=== PATIENT | male | born 1990 | race Two or more races ===

== ENCOUNTER 2024-12-06 14:08 | Emergency (ER) | payer MEDICAID, SELFPAY ==
[2024-12-06 14:19] VITALS: BP 139/90; PULSE 89; RESP 18; TEMP 36.6; O2SAT 99; BMI 26.2
--- NOTE | 2024-12-06 14:23 | XR_ITS ---
Examination: CT abdomen and pelvis without contrast. Coronal 3-D reconstructions. Sagittal 2-D reconstructions. Date and time of exam:December 06, 2024 at 1518 hours INDICATIONS: Right-sided flank pain radiating to the back today, history kidney stones on CT study May 04, 2020 CTDI: vol (mGy): 7.48 DLP: (mGycm): 441 Technique: Axial images of the abdomen have been obtained, 3 mm slice thickness Intravenous contrast material has not been administered. Low dose protocols were performed. One or more of the following dose reduction techniques were used; automated exposure control, adjustment of the mA and/or KV according to patient size, use of iterative reconstruction technique. Findings: Chronic lesions No gallstones No pancreatic or adrenal mass 2 mm right renal calculus, no hydronephrosis or ureteral calculi Normal appendix No bladder mass or bladder calculi, no prostatomegaly Intact osseous structures IMPRESSION: 2 mm nonobstructing right renal calculus Mild bilateral renal parenchymal scar formation. No hydronephrosis or ureteral calculi No bladder mass or bladder calculi
--- NOTE | 2024-12-06 14:23 | XR_ITS ---
Examination: Lumbar spine 3 views TECHNIQUE: AP lateral coned lateral and lower lumbar spine 3 views Date and time: December 06, 2024, 12:38 PM INDICATIONS: Low back pain today. FINDINGS: Satisfactory alignment lumbar vertebral bodies. No lumbar fracture. No spondylolisthesis. Minimal disc narrowing posteriorly L5-S1 IMPRESSION: Minimal disc narrowing L5-S1
--- NOTE | 2024-12-06 15:00 | EDNOTE_ITS ---
ED Back Injury Pain RME/HPI General Chief Complaint: Back Pain/Injury Stated Complaint: INTERMITTENT LOWER BACK/FLANK PAIN Time Seen by Provider: 12/06/24 14:11 Arrival date/time: 12/06/24 14:08 34-year-old male with no known medical history presents to the emergency room with a chief complaint of left-sided flank pain and bilateral lower abdominal pain x 3 days Mode of arrival: ambulatory Limitations: no limitations Related Data Home Medications ?Medication ?Instructions ?Recorded ?Confirmed ibuprofen 800 mg tablet 800 mg PO Q4-6HRPRN ##0 10/13 05/27 Previous Rx's ?Medication ?Instructions ?Recorded lorazepam 1 mg tablet 1 mg PO TID #6 tabs 05/02/14 hydrocodone 5 mg-acetaminophen 325 1 tab PO BID PRN pa in #10 tabs 05/04/20 mg tablet ([place]) tamsulosin 0.4 mg capsule (Flomax) 0.4 mg PO QDAY #7 c aps 05/04/20 hydrocodone 5 mg-acetaminophen 325 1 tab PO BID PRN pa in #10 tabs 03/17/23 mg tablet ibuprofen 800 mg tablet 800 mg PO TID PRN pain #30 t abs 03/17/23 hydrocodone 5 mg-acetaminophen 325 1 tab PO BID PRN pa in #10 tabs 12/06/24 mg tablet tamsulosin 0.4 mg capsule (Flomax) 0.4 mg PO QDAY #30 caps 12/06/24 Allergies Allergy/AdvReac Type Severity Reaction Status Date / Time No Known Allergies Allergy Verified 12/06/24 14:10 Review of Systems Review of Systems Systems Reviewed: All systems reviewed, normal except as documented Constitutional Constitutional: Reports system reviewed and no additional complaints, except as documented, Denies fatigue, Denies fever(s), Denies headache(s) and Denies weakness Eyes Eyes: Reports system reviewed and no additional complaints, except as documented, Denies blurry vision and Denies change in vision ENT Ears, Nose, Mouth, and Throat: Reports system reviewed and no additional complaints, except as documented, Denies otalgia, Denies headache(s), Denies nasal congestion, Denies throat swelling and Denies vertigo Cardiovascular Cardiovascular: Reports system reviewed and no additional complaints, except as documented, Denies chest pain, Denies dyspnea and Denies dyspnea on exertion Respiratory Respiratory: Reports system reviewed and no additional complaints, except as documented, Denies chest congestion, Denies cough, Denies dyspnea, Denies dyspnea on exertion and Denies wheezing Gastrointestinal Gastrointestinal: Reports system reviewed and no additional complaints, except as documented, Denies abdominal pain, Denies cramping, Denies nausea and Denies vomiting Genitourinary Genitourinary: Reports system reviewed and no additional complaints, except as documented, Denies dysuria and Denies hematuria Musculoskeletal Musculoskeletal: Reports system reviewed and no additional complaints, except as documented and Denies back pain Integumentary/Breasts Skin/Breast: Reports system reviewed and no additional complaints, except as documented and Denies wounds Neurologic Neurologic: Reports system reviewed and no additional complaints, except as doc umented, Denies confusion, Denies headache(s), Denies lack of coordination, Denies vertigo and Denies weakness Psychiatric Psychiatric: Reports system reviewed and no additional complaints, except as documented, Denies anxiety, Denies confusion, Denies depression, Denies paranoia, Denies suicidal ideation and Denies tactile hallucinations Endocrine Endocrine: Reports system reviewed and no additional complaints, except as documented and Denies fatigue Hematologic/Lymphatic Hematologic/Lymphatic: Reports system reviewed and no additional complaints, except as documented and Denies lymphadenopathy Allergic/Immunologic Allergic/Immunologic: Reports system reviewed and no additional complaints, except as documented, Denies throat swelling, Denies urticaria and Denies wheezing ED Exam General Limitations: Present no limitations Course Quality Measures none Orders Category Date Time Status CT abdomen pelvis wo con Stat Exams 12/06/24 14:23 Completed XR lumbar spine 2-3V Stat Exams 12/06/24 14:23 Completed CBC Stat Lab 12/06/24 14:50 Completed CMP [Comprehensive Metabolic Panel] Stat Lab 12/06/24 14:50 Completed Lipase Stat Lab 12/06/24 14:50 Completed UA [Urinalysis] Stat Lab 12/06/24 14:45 Completed Urine Culture Stat Lab 12/06/24 14:45 Received Ketorolac Inj [Toradol Inj] Med 12/06/24 14:23 Discontinued 30 mg IM X1 ONE Vital Signs Vital signs: Vital Signs Temperature 98 F 12/06/24 14:19 Pulse Rate 89 12/06/24 14:19 Respiratory Rate 18 12/06/24 14:19 Blood Pressure 139/90 H 12/06/24 14:19 Pulse Oximetry (%) 99 12/06/24 14:19 Oxygen Delivery Method Room Air 12/06/24 14:19 Back Pain / Injury MDM Narrative MDM Narrative:: 34-year-old male with no known medical history presents to the emergency room with a chief complaint of left-sided flank pain and bilateral lower abdominal pain x 3 days Patient is hemodynamically stable and in no apparent distress Physical examination shows some left-sided CVA tenderness with palpation as well as some left lower bilateral abdominal pain and tenderness with palpation. Patient is also nauseous but denies any vomiting CT of the abdomen and pelvis was completed and shows a 2 mm nonobstructing right renal calculus. Urinalysis was within normal limits. CBC CMP were within normal limits Patient was discharged and educated to follow-up with primary care provider in the next 24 to 48 hours and return to the emergency room for any evidence of worsening signs or symptoms Patient data External records reviewed:: [facility] previous records Clinical information provided by:: patient Social determinants that could affect healthcare access:: none Patient has the following chronic illnesses:: No chronic illness How is presenting disease/condition affected by chronic disease/condition?: no chronic disease Evaluation data The following diagnostics were reviewed and interpreted by me:: lab results and radiology exam(s) Lab and/or radiology exams considered but not ordered:: Labs and radiology exams considered and ordered Interpretation Summary: Findings: Chronic lesions No gallstones No pancreatic or adrenal mass 2 mm right renal calculus, no hydronephrosis or ureteral calculi Normal appendix No bladder mass or bladder calculi, no prostatomegaly Intact osseous structures IMPRESSION: 2 mm nonobstructing right renal calculus Mild bilateral renal parenchymal scar formation. No hydronephrosis or ureteral calculi No bladder mass or bladder calculi Medications / Prescriptions Medications or Prescriptions considered but not ordered:: Medication given Medication administrations:: Medication Administration History Discontinued Medications Ketorolac Tromethamine (Ketorolac Inj 60 Mg/2 Ml Vial) 30 mg IM X1 ONE Stop: 12/06/24 14:24 Last Admin: 12/06/24 14:30 Dose: Not Given Documented By: AVANI Non-Admin Reason: Patient Refused Medication given Consultations Consultation(s) initiated? (list below): No Diagnosis Differential diagnosis back pain/injury: lumbar radiculopathy, strain of lumbar region, renal colic, pyelonephritis and thoracic back pain Most likely diagnosis given after review of the tests above:: Renal colic Admission Indicated Admission indicated?: not indicated Admission Request Was there a request for admission?: No Disposition Plan Disposition Plan: Discharge Discharge Attestation Discharge Attestation: The patient and all family members were given an opportunity to ask questions and understood the discharge instructions. Discharge instructions specifically effects, indications for sooner follow up or return to the emergency department, and the expected course of current diagnosis. Patient condition: Stable Discharge Plan Plan Patient Disposition: HOME (Self Care) Discharge Disposition comment: Stable Prescriptions/Referrals Prescriptions/Med Rec: New hydrocodone-acetaminophen 5-325 mg tablet 1 tab PO BID MDD 10mg PRN (Reason: pain) Qty: 10 0RF tamsulosin [Flomax] 0.4 mg capsule 0.4 mg PO QDAY Qty: 30 0RF No Action ibuprofen 800 MG tablet 800 mg PO Q4-6HRPRN Qty: 0 lorazepam 1 MG tablet 1 mg PO TID Qty: 6 0RF tamsulosin [Flomax] 0.4 mg capsule 0.4 mg PO QDAY Qty: 7 0RF hydrocodone-acetaminophen [[place]] 5-325 mg tablet 1 tab PO BID MDD 2 PRN (Reason: pain) Qty: 10 0RF Rx Instructions: Use for breakthrough pain if Toradol does not keep pain below level 7/10. ibuprofen 800 mg tablet 800 mg PO TID PRN (Reason: pain) Qty: 30 0RF hydrocodone-acetaminophen 5-325 mg tablet 1 tab PO BID MDD 10 PRN (Reason: pain) Qty: 10 0RF Referrals: Kenneth Cooper MD [Primary Care Provider] - In 1 week Problem List Clinical Impression: Kidney stone, Renal colic Patient/Caregiver Discharge Instructions Education Materials: ED Kidney Stone w/ Colic Additional Instructions: Por favor, consulte con sun m?dico de cabecera en las pr?ximas 24 a 48 horas. Sun tomograf?a computarizada mostr? un c?lculo de 2 mm en el ri??n. Lo expulsar?. Se envi? el medicamento a sun farmacia; rec?jalo y t?orellana seg?n las indicaciones. Por favor, aumente sun ingesta de l?quidos por v?a oral. Si observa cualquier signo de empeoramiento de los signos o s?ntomas, acuda a urgencias de inmediato. Print Language: [place] Stand Alone Forms: Gala Award Info., Patient Portal Info Letter PA/DIETARY AIDE TEACHER Supervising Physician PA/DIETARY AIDE TEACHER Supervising Physician: Dr. Lopes
[2024-12-06 15:09] LABS: Collection Type, Urine Clean Catch; Squamous Epithelial Cell,Urine 0 /hpf (0-5)
[2024-12-06 15:18] LABS: Basophils # (Auto) 0.0 Thou/mm3 (0.0-0.2); Basophils % (Auto) 1 % (0-2.5); Eosinophils # (Auto) 0.1 Thou/mm3 (0.0-0.5); Eosinophils % (Auto) 1 % (0-10); Hematocrit 44.2 % (41.0-53.0); Hemoglobin 14.5 g/dL (13.5-16.0); Immature Granulocytes Auto 0.01 Thou/mm3 (0.00-0.00); Lymphocytes # (Auto) 1.9 Thou/mm3 (1.0-4.8); Lymphocytes % (Auto) 29 % (10-50); Mean Corpuscular HGB Conc 32.8 g/dl (31.0-37.0); Mean Corpuscular Hemoglobin 27.4 pg (25.0-35.0); Mean Corpuscular Volume 84 fL (80-100); Monocytes # (Auto) 0.3 Thou/mm3 (0.0-0.8); Monocytes % (Auto) 4 % (0-12); Neutrophils # (Auto) 4.1 Thou/mm3 (1.8-7.7); Neutrophils % (Auto) 64 % (37-80); Nucleated Red Blood Cell # 0.00 Thou/mm3 (0.00-0.00); Nucleated Red Blood Cell % 0 /100 WBC (0); Platelet Count 162 Thou/mm3 (140-440); RDW Standard Deviation 42.0 fL (35.1-43.9); Red Blood Count 5.29 Miln/mm3 (4.50-5.90); White Blood Count 6.3 Thou/mm3 (3.8-10.6)
[2024-12-06 15:22] LABS: Bilirubin,Urine Negative (Negative); Blood,Urine Negative (Negative); Clarity,Urine Clear (Clear/Hazy); Color,Urine Lt-Yellow (Lt Yel-Yel); Glucose, Urine Negative (Negative); Ketones,Urine Negative (Negative); Leukocyte Esterase,Urine Negative (Negative); Nitrite,Urine Negative (Negative); PH,Urine 8.0 (5.0-7.0); Protein,Urine Negative (Neg - Trace); RBC,Urine < 1 /hpf (0-3); Specific Gravity,Urine 1.026 (1.001-1.035); Urobilinogen,Urine Negative mg/dL (0.0-1.0); WBC,Urine < 1 /hpf (0-5)
[2024-12-06 15:30] LABS: Alanine Aminotransferase 21 U/L (10-49); Albumin, Serum 4.7 gm/dL (3.5-5.0); Albumin/Globulin Ratio 1.9 (1.2-2.2); Alkaline Phosphatase 97 U/L (46-116); Anion Gap 10 (7-16); Aspartate Amino Transferase 20 U/L (0-34); BUN/Creatinine Ratio 12 Ratio (12-20); Bilirubin,Total 0.6 mg/dL (0.3-1.2); Blood Urea Nitrogen 13 mg/dL (9-23); Calcium 10.3 mg/dL (8.3-10.6); Calcium (Corrected) 10.3 mg/dL (8.5-10.1); Carbon Dioxide 28.1 mMol/L (20.0-31.0); Chloride 106 mMol/L (98-107); Creatinine (Component) 1.1 mg/dL (0.6-1.3); Estimated Creatinine Clearance 82.3 mL/min (>60); Globulin 2.5 gm/dL (2.3-3.5); Glucose 96 mg/dL (74-106); Lipase 27 U/L (12-53); Osmolality,Calculated 286 (275-295); Potassium 4.4 mMol/L (3.4-5.1); Sodium 144 mMol/L (136-145); Total Protein 7.2 gm/dL (5.7-8.2); eGFR > 60 See Note
[2024-12-06 17:30] VITALS: BP 123/68; PULSE 63; RESP 18; TEMP 36.4; O2SAT 99
== END 2024-12-06 17:31 | disposition home or self-care (01) ==
PROVIDERS: Nurse Practitioner Family; Emergency Provider Emergency Medicine; PCP Family Medicine
DX: N20.0 Calculus of kidney (principal)
CPT/HCPCS: 36415; 72100; 74176; 80053; 81001; 83690; 85025; 87086; 99284